=== PATIENT | male | born 1955 | race Hispanic/Latino ===

== ENCOUNTER 2018-05-08 15:51 | Inpatient (IN) | payer BC ==
--- NOTE | 2018-05-08 17:06 | ED PDOC ---
Arrival/HPI - General Chief Complaint: Flu-like Symptoms Time Seen by Provider: 05/08/18 16:10 Historian: Patient - History of Present Illness Narrative History of Present Illness (Text): 05/08/18 17:41 62yo male with with pmhx of inge angio CA referred to ED by Dr. Vargas for complaint of nonproductive cough, rigor, since this morning. Notes that he had a his last Chemo this Sunday. +subjective fever. Denies nausea, vomiting, abdominal pain, chest pain, SOB, diaphoresis, sick contact, travel, any other complaint at this time. Past Medical History - Provider Review Nursing Documentation Reviewed: Yes - Infectious Disease Hx of Infectious Diseases: None - Cardiac Hx Cardiac Disorders: No - Pulmonary Hx Respiratory Disorders: No - Neurological Hx Neurological Disorder: No - HEENT Hx HEENT Disorder: No - Renal Hx Renal Disorder: No - Endocrine/Metabolic Hx Endocrine Disorders: No - Hematological/Oncological Hx Blood Disorders: No Hx Cancer: Yes (Bile duct cancer) Other/Comment: Pt's is on chemo - Integumentary Hx Dermatological Disorder: No - Musculoskeletal/Rheumatological Hx Musculoskeletal Disorders: No - Gastrointestinal Hx Gastrointestinal Disorders: No - Genitourinary/Gynecological Hx Genitourinary Disorders: No - Psychiatric Hx Psychophysiologic Disorder: Yes Hx Anxiety: Yes Hx Substance Use: No - Surgical History Other/Comment: Liver resection Family/Social History - Physician Review Nursing Documentation Reviewed: Yes Family/Social History: Unknown Family HX Smoking Status: Light Smoker < 10 Cigarettes Daily Hx Alcohol Use: No Hx Substance Use: No Allergies/Home Meds Allergies/Adverse Reactions: Allergies No Known Allergies Allergy (Verified 05/08/18 15:58) Home Medications: Home Meds Medication Instructions Recorded Confirmed ALPRAZolam [Xanax] 0.25 mg PO PRN PRN 01/27/16 01/27/16 Review of Systems - Physician Review All systems were reviewed & negative as marked: Yes - Review of Systems Constitutional: Normal Eyes: Normal ENT: Normal Respiratory: Cough Cardiovascular: Normal Gastrointestinal: Normal Genitourinary Male: Normal Musculoskeletal: Normal Skin: Normal Neurological: Normal Endocrine: Normal Hemo/Lymphatic: Normal Psychiatric: Normal Physical Exam Vital Signs Reviewed: Yes Temperature: Afebrile Blood Pressure: Normal Pulse: Tachycardic Respiratory Rate: Normal Appearance: Positive for: Well-Appearing, Non-Toxic, Comfortable Pain Distress: None Mental Status: Positive for: Alert and Oriented X 3 - Systems Exam Head: Present: Atraumatic, Normocephalic Pupils: Present: PERRL Extroacular Muscles: Present: EOMI Conjunctiva: Present: Normal Mouth: Present: Moist Mucous Membranes Neck: Present: Normal Range of Motion Respiratory/Chest: Present: Clear to Auscultation, Good Air Exchange. No: Respiratory Distress, Accessory Muscle Use, Decreased Breath Sounds, Rales, Retracting, Rhonchi Cardiovascular: Present: Regular Rate and Rhythm, Normal S1, S2. No: Murmurs Abdomen: No: Tenderness, Distention, Peritoneal Signs Back: Present: Normal Inspection Upper Extremity: Present: Normal Inspection. No: Cyanosis, Edema Lower Extremity: Present: Normal Inspection. No: Edema Neurological: Present: GCS=15, CN II-XII Intact, Speech Normal Skin: Present: Warm, Dry, Normal Color. No: Rashes Psychiatric: Present: Alert, Oriented x 3, Normal Insight, Normal Concentration Medical Decision Making ED Course and Treatment: 05/08/18 19:06 PT in ED for stated history. He was tachy on arrival. Case was DW Dr. 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 Pt have unoperable CA and currently undergoing chemo with improvement in his bilirubin level noted. States patient gets Chemo every Sunday and the last time was 2days ago. states that patient started having rigor, chills and cough while at Dr. Morelos office for routine visit and he was notified, while patient was sent to the ED. He notes his concern for possible Tumor lysis syndrome. recommends antibiotics and placing pt in OBS with Swetha Stevens and Shad consult. Labs Blood and urine culture CXR EKG 1L NS Vanco and Zosyn Chest xray IMPRESSION: No active disease. No significant interval change compared to the prior examination(s). EKG Accelerate junctional rhythm @ 112bpm NSTEMI Lab was reviewed, leukopenia, elevated alk phos/LFT and lactic noted. Pt however do not meet SIRs criteria for code sepsis. He had rigors while in ED and requested for Klonopin. states is the only medication that usually help him when he gets rigors. It resolved the medication. He was admitted to Dr. Ace. Plan was DW the pt and he agreed. - Lab Interpretations Lab Results: Lab Results 05/08/18 16:30: Influenza Typ A,B (EIA) Negative for flu a/b - RAD Interpretation Radiology Orders: 05/08/18 16:10 CHEST TWO VIEWS (PA/LAT) [RAD] Stat Disposition/Present on Arrival - Present on Arrival Any Indicators Present on Arrival: No History of DVT/PE: No History of Uncontrolled Diabetes: No Urinary Catheter: No History of Decub. Ulcer: No History Surgical Site Infection Following: None - Disposition Have Diagnosis and Disposition been Completed?: Yes Diagnosis: Leukopenia, Elevated liver enzymes, Cholangiocarcinoma, Malaise, Cough Disposition: HOSPITALIZED Disposition Time: 18:00 Patient Plan: Admission Patient Problems: Current Active Problems Problem Status Onset Cholangiocarcinoma Acute Cough Acute Elevated liver enzymes Acute Leukopenia Acute Malaise Acute Condition: FAIR
[2018-05-08 17:27] LABS: VENOUS BLOOD GAS PO2 127 mm/Hg (30-55); VENOUS BLOOD PH 7.45 (7.32-7.43)
[2018-05-08] MEDS ORDERED: Sodium Chloride 0.9% 1,000 ML IV STA (17:34)
[2018-05-08] MEDS ORDERED: Piperacill/Tazo 4.5gm in NS 4.5 GM/100 ML BAG IVPB STA (17:34)
--- NOTE | 2018-05-08 17:34 | RAD ---
Date of service: 05/08/2018 HISTORY: cough COMPARISON: 01/27/2016 TECHNIQUE: Chest PA and lateral FINDINGS: LUNGS: No active pulmonary disease. PLEURA: No significant pleural effusion identified. No pneumothorax apparent. CARDIOVASCULAR: No aortic atherosclerotic calcification present No radiographic findings to suggest acute or significant cardiovascular disease. OSSEOUS STRUCTURES: No significant abnormalities. VISUALIZED UPPER ABDOMEN: Normal. OTHER FINDINGS: None. IMPRESSION: No active disease. No significant interval change compared to the prior examination(s).
[2018-05-08] MEDS ORDERED: Vancomycin 1gm in NS 250ml 1 GM/250 ML BAG IVPB STA (17:36)
[2018-05-08 17:46] LABS: URINE BILIRUBIN SMALL (NEGATIVE); URINE BLOOD LARGE (NEGATIVE); URINE GLUCOSE (UA) NEGATIVE (NEGATIVE); URINE LEUKOCYTE ESTERASE NEGATIVE Leu/uL (NEGATIVE); URINE PROTEIN 100 mg/dL (<30 mg/dL)
[2018-05-08 17:48] LABS: INR 1.24; PARTIAL THROMBOPLASTIN TIME 24.5 Seconds (25.1-36.5); PROTHROMBIN TIME 14.2 SECONDS (9.4-12.5)
[2018-05-08 17:56] LABS: ALB/GLOB RATIO 0.8 (1.1-1.8)
[2018-05-08 17:57] LABS: GRAN # 2.74 (1.4-6.5); GRAN % 96.1 % (50.0-68.0); HEMOGLOBIN 8.6 g/dL (14.0-18.0); LYMPH # 0.1 (1.2-3.4); LYMPH % 3.5 % (22.0-35.0); MEAN CELL VOLUME 92.1 fl (80.0-105.0); MEAN CORPUSCULAR HEMOGLOBIN 30.8 pg (25.0-35.0); MEAN CORPUSCULAR HGB CONC 33.5 g/dl (31.0-37.0); MEAN PLATELET VOLUME 10.3 fl (7.0-11.0); MONO % 0.4 % (1.0-6.0); PLATELET COUNT 402 10^3/uL (120.0-450.0); RBC 2.79 10^6/uL (3.5-6.1); RED CELL DISTRIBUTION WIDTH 15.2 % (11.5-14.5)
[2018-05-08 18:03] LABS: WHITE BLOOD COUNT 2.9 10^3/ul (4.5-11.0)
[2018-05-08 18:04] LABS: URINE APPEARANCE SL CLOUDY (CLEAR)
[2018-05-08 18:27] LABS: ALBUMIN 3.1 g/dL (3.0-4.8); CALCIUM 8.8 mg/dL (8.4-10.5)
[2018-05-08 18:38] LABS: URINE COLOR YELLOW (YELLOW)
[2018-05-08 18:46] LABS: URINE BACTERIA MANY (NEG)
[2018-05-08 18:55] LABS: BAND 9 % (0-2); EOSINOPHIL 1 % (0.0-3.0); LYMPHOCYTE 4 % (22.0-35.0); MONOCYTE 2 % (1.0-6.0); NEUTROPHIL 84 % (50.0-70.0)
[2018-05-08 18:56] LABS: ANISOCYTOSIS 1+; HYPOCHROMIA 1+; PLATELET ESTIMATE NORMAL (NORMAL); POIKILOCYTOSIS SLIGHT; STOMATOCYTE SLIGHT
[2018-05-08] MEDS ORDERED: Potassium Chl 10 mEq in D5-1/2 1,000 ML IV SCH (21:15)
[2018-05-08 21:33] LABS: VENOUS BLOOD GAS BASE EXCESS -13.2 mmol/L (0.0-2.0); VENOUS BLOOD GAS PO2 122 mm/Hg (30-55); VENOUS BLOOD PH 7.29 (7.32-7.43)
[2018-05-08] MEDS ORDERED: POLYETHYLENE GLYCOL 3350 17 GM/Dose PACKET PO PRN (22:05)
[2018-05-08] MEDS ORDERED: FMT LOWER DELIVERY MICROBIOTA PREPARATION 250 ML RC ONE (22:55)
[2018-05-08 23:22] VITALS: BMI 21.2
[2018-05-08] MEDS ORDERED: Albuterol-Ipratrop 3 mg / 0.5 (3 ml) UD IH ONE (23:42)
[2018-05-09 00:03] VITALS: BP 163/76; PULSE 122; RESP 22; TEMP 98; O2SAT 95
[2018-05-09 01:18] LABS: VENOUS BLOOD GAS BASE EXCESS -28.9 mmol/L (0.0-2.0); VENOUS BLOOD GAS PO2 56 mm/Hg (30-55); VENOUS BLOOD PH 6.87 (7.32-7.43)
[2018-05-09] MEDS ORDERED: Sodium Chloride 0.9% 1,000 ML IV STA (01:22)
[2018-05-09] MEDS ORDERED: Levalbuterol 0.63 MG/3 ML Inhal Soln UD IH STA (01:33)
[2018-05-09] MEDS ORDERED: Iodixanol 320 MG/ML 100 ML BOTTLE IV ONE (01:35)
[2018-05-09] MEDS ORDERED: Levalbuterol 0.63 MG/3 ML Inhal Soln UD ONE (01:36)
[2018-05-09] MEDS ORDERED: Midazolam 2 MG/2 ML VIAL IVP ONE (01:49)
[2018-05-09] MEDS ORDERED: Midazolam 2 MG/2 ML VIAL ONE (01:54)
[2018-05-09] MEDS ORDERED: Dextrose 50% SYRINGE Inj (50 ml) IVP ONE ×2 (01:54→01:58)
[2018-05-09] MEDS ORDERED: Dextrose 5%/0.45% NS 1,000 ML IV SCH (02:15)
[2018-05-09 02:42] LABS: HEMOGLOBIN 9.3 g/dL (14.0-18.0); MEAN CORPUSCULAR HEMOGLOBIN 30.9 pg (25.0-35.0); MEAN CORPUSCULAR HGB CONC 30.8 g/dl (31.0-37.0); MEAN PLATELET VOLUME 10.8 fl (7.0-11.0); RBC 3.01 10^6/uL (3.5-6.1); RED CELL DISTRIBUTION WIDTH 16.5 % (11.5-14.5); WHITE BLOOD COUNT 8.4 10^3/ul (4.5-11.0)
[2018-05-09 02:52] LABS: MEAN CELL VOLUME 100.3 fl (80.0-105.0)
[2018-05-09 03:04] LABS: ALB/GLOB RATIO 0.8 (1.1-1.8); ALBUMIN 3.1 g/dL (3.0-4.8); ALT/SGPT 814 U/L (7-56); AST/SGOT 1359 U/L (17-59); BLOOD UREA NITROGEN 35 mg/dL (7-21); CALCIUM 9.2 mg/dL (8.4-10.5); GFR NON-AFRICAN AMERICAN 24
--- NOTE | 2018-05-09 03:09 | PCM.PROC ---
Procedures Attestation:: I certify that I have explained the specified Operation(s) or Procedure(s), risks, benefits and reasonable alternatives to the Patient and/or other person responsible. The opportunity was given to ask questions and all questions answered - Intubation Time Out Performed: Yes Sedative: Versed (1cc) Laryngoscope: Martin ET Tube Size: 7.5 ET Tube Uncuffed: Yes ET Tube Secured at Depth: 24 ET Tube Secured Locarion: Lips ET Tube Placement Confirmation: Visualized Passing Through Cords, Breath Sounds Equal Bilaterally, No Breath Sounds Over Epigastrum, Confirmation w/Capnometry Patient Tolerated Procedure: No Complications Procedure Immediate Complications: None
--- NOTE | 2018-05-09 03:11 | PCM.PROC ---
Procedures Attestation:: I certify that I have explained the specified Operation(s) or Procedure(s), risks, benefits and reasonable alternatives to the Patient and/or other person responsible. The opportunity was given to ask questions and all questions answered - Central Line Placement Right Femoral Triple Lumen Catheter Aseptic technique was employed throughout the procedure: Hand Hygiene done prior to procedure, Full sterile barriers (mask, hair cover, sterile gown, sterile gloves), Full body sterile drape, Chloraprep Antiseptic: 2 minute prep for Femoral CVP Time Out Performed: No Pt. Placed on Pulse Ox Monitor: Yes Central Line Prep: Chlorhexidine-Alcohol Combination Amount of Anesthesia Used (mls): 0 Ultrasound Used for Placement: Yes Central Line Lumen Inserted: triple Central Line Length: 20 cm Post Procedure: Sutured in Place, Good Blood Return, All Ports Aspirated, Flu shed, Capped, Sterile Dressing Applied Secured by: Suture Post procedure dressing: Clear vapor permeable, Chlorhexidine disc (Biopatch) Post Procedure X-Ray: No Patient Tolerated Procedure: No Complications Immediate Complications: None Additional Comments: Consent implied due to emergency situation. Central line placed under emergent conditions. Patient code tata called at 2:11 am with initial ROSC however patient had loss of pulses short after and ACLS protocol was resumed. Peripheral access was poor and patient required pressor initiation for blood pressure support.
--- NOTE | 2018-05-09 04:10 | PCM.RRT ---
ROLL TENSION TESTER Nurse Assessment - Situation Date: 05/09/18 Time ROLL TENSION TESTER was called: :35 ROLL TENSION TESTER Responder Arrival Time: :35 ROLL TENSION TESTER Location:: [address] [place] [address] Room Number: 372-2 ROLL TENSION TESTER Reason for Call: Respiratory Distress, O2 Saturation below 90% ROLL TENSION TESTER Called By: RN, Physician - IV IV Inserted during ROLL TENSION TESTER?: No - Respiratory Oxygen Delivery Method: Face Mask @%, Intubated Was the Patient Ventilated with Bag/Mask 100% O2?: Yes Secretions Suctioned?: Yes Was the Patient Intubated?: Yes - Medication Medications Administered During ROLL TENSION TESTER: Solumedrol 125mg IVP. Versed 2 mg IVP. D50 ample x2. D51/2NS at 125 mls/hr - Diagnostic Test Ordered EKG: Yes Chest X-Ray: Yes CT Scan: Yes - Stat Labs Ordered ROLL TENSION TESTER Stat Labs Ordered: CBC, BMP, ABG CPR started during ROLL TENSION TESTER?: Yes - Vital Signs Vital Sign: Rapid Response Vital Sign Blood Pressure 117/63 Pulse Rate 108 Respiratory Rate 20 Temperature 97.2 F Oxygen Saturation 100 - Finger Stick Blood Glucose Finger Stick Blood Glucose: 20 - Time ROLL TENSION TESTER Ended Time ROLL TENSION TESTER Ended: 02:11 - Recommendations Notifications: Attending Physician, Family or Designated Caregiver I.Reason for ROLL TENSION TESTER - A) Acute Change in Patient: (Select all that apply): Acute change in SpO2 less Subjective: ROLL TENSION TESTER called on patient by housestaff for evaluation and treatment of decreasing oxygen saturation while on 2L via NC. Patient seen and examined at bedside with rapid response team. BP initially noted to be 138/50 with pulse of 120s. Patient blood glucose noted to be in the 20s. Patient given 2 amps D50 stat. Repeat blood glucose improved to 80s. Patient became more awake and alert. Despite intervention patient blood pressure and heart rate declined. Patients breathing status worsened. Patient was intubated for airway protection. Patient subs equently experienced loss of pulses. Rafal payton called. Roles assigned. Bed board placed under patient. CPR initiated immediately. Asystole noted on monitor. IV epi given every 3-5 minutes with rate/rhythm checks every 2 minutes. Calcium chloride x 1 and sodium bicarbonate x 1 administered. ROSC was achieved after 5 rounds of ALCS were performed. A femoral TLC was placed by surgery resident in the right groin and levophed and dopamine were started. During this time pulses were lost for the second time. Rafal payton called. CPR initiated immediately. Asystole noted on monitor. IV epi given every 3-5 minutes with rate/rhythm checks every 2 minutes. 6 rounds of ACLS protocol performed. Patient remained pulseless despite aforementioned interventions. Patient was pronounced at 3:01am. - Neurological Status (Select all that apply): Disoriented - Respiratory Oxygen Delivery Method: Face Mask @%, Intubated
--- NOTE | 2018-05-09 04:14 | CP.PCM.PRO ---
Pronouncement of Note - Clinical Findings Physical Exam: No Response Verbal/Painful Stimuli, Absent Peripheral Puls es{Carotid & Femoral}, Absent Heart & Breath Sounds, Pupils Fixed & Dilated, Absence of Vital Signs - Pronouncement Time Time of Pronouncement of : 03:01 - Notifications Pronouncement Notifications: Family Notified, Atending Notified Blind Escort Notified: Yes [place] [id number]
--- NOTE | 2018-05-09 05:13 | HP ---
DATE OF EXAM: 05/08/[address] Vargas. CHIEF COMPLAINT: Rigors, chills. HISTORY OF PRESENT ILLNESS: The patient is a 62-year-old male admitted by the emergency room for rigors and chills since meeting/event planner with occasional nonproductive cough. 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 At present, he is resting comfortably after IV antibiotics were begun, with patient reporting that he had been seen by Dr. Fontenot, his straw hat presser, in the past, who does not come to this hospital with recommendations for dilatation of his esophagus?. With this, we will ask Dr. Kulkarni, straw hat presser, to evaluate the patient for this complaint as the patient reports that he feels that whenever he swallows something it gets stuck in his mid upper abdomen. Also constipation past 2 days. PAST MEDICAL HISTORY: Significant for stage IV cholangiocarcinoma with obstructive jaundice, status post common bile duct stenting, anxiety, history of aborted liver resections at [facility] in [place], GERD, and unintentional weight loss. FAMILY HISTORY AND SOCIAL HISTORY: The patient is a current smoker, trying to quit. 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 Otherwise, noncontributory. His mother of bowel perforation. Father of brain cancer. One brother of bile duct cancer and one sister who is alive but in poor health, he reports. ALLERGIES: NO KNOWN ALLERGIES. MEDICATIONS: Include Zofran, Klonopin, Zoloft, tramadol, and now recently Zofran discontinued and Kytril/Sancuso patch for nausea apply to the left arm. REVIEW OF SYSTEMS: A 12-point review of systems was done, which was negative to question except for items mentioned in the history of present illness. PHYSICAL EXAMINATION: VITAL SIGNS: Temperature 98.8, pulse 127, respirations 18, blood pressure 106/58 with a pulse ox of 95%. HEENT: Unremarkable. NECK: Supple. HEART: Tachy rate, regular rhythm. LUNGS: Clear. ABDOMEN: Soft. Minimal tenderness to gentle palpation in the midepigastrium. EXTREMITIES: No edema. SKIN: Warm and dry. NEUROLOGIC: Awake, alert, and oriented x3. LABORATORY DATA: The patient's labs were done. White blood cell count of 2.9 with an absolute neutrophil count of 2.47, hemoglobin of 8.6, hematocrit of 25.7, platelet count of 402,000. His chem metabolic panel showed a chloride of 110, BUN of 34, creatinine of 1.5, T bili of 1.7, AST of 227, ALT of 147 with an alk phos of 669. His CA 19-9 was done on 04/24/2018 showing a value of 169 with a CEA value on the same day of 4.7. His INR today is 1.24. Urinalysis showed large amount of blood, small amount of bilirubin with his influenza negative for A, B flu. The patient did have a chest x-ray done earlier today, it was read as no active disease, no significant interval change. Ultrasound of the abdomen was done earlier today, it was read as multiple solid hepatic masses, multiple simple hepatic cysts, biliary stent, CBD dilated to 11 mm, gallbladder filled with sludge, but no evidence of cholelithiasis. The patient had EKG done today, it was not read yet. We will wait the results. ASSESSMENT: For this patient is that of sepsis, systemic inflammatory response syndrome, stage IV cholangiocarcinoma, status post stenting, currently on chemotherapy, nausea, esophageal constriction?, anxiety and. constipation. PLAN: For this patient is to admit to the medical floor. We will give IV fluids with clear liquids as tolerated. We will continue his Sancuso/Kytril patch for nausea as it works better than Zofran. We will check a procalcitonin level as per consult with Dr. Stevens, Infectious Disease, and Dr. Kulkarni, Gastrointestinal. We will also continue IV antibiotics as per Dr. Stevens, , with labs rechecked again in the morning. Also with the patient's anemic indices and neutropenia, we will monitor to see whether isolation might be indicated for his neutropenic lab findings. Miralax tonight and daily prn constipation also recommended. Prognosis for this patient is guarded. This is a complex patient with a comprehensive medically necessary and appropriate visit carried out in excess of 70 minutes with patient's questions answered to his satisfaction. Zain Armando MD [facility]
--- NOTE | 2018-05-09 10:43 | CARD ---
APPROVED REPORT Date of service: 05/08/2018 EKG Measurement Heart [id number] <Conclusion> Sinus Tachycardia Short PA No change
== END 2018-05-09 03:01 | DRG 871 ==
LOC: ED 15:51 → ERH 18:34 → OBSVTOIN 19:30 → ERH 20:30 → 3RSO 21:29
PROVIDERS: ADMIT Family Medicine; ATTEND Family Medicine
PROC: 0BH18EZ Insertion of Endotracheal Airway into Trachea, Via Natural or Artificial Opening Endoscopic (ICD-10-PCS; principal; 2018-05-09)
PROC: 06HY33Z Insertion of Infusion Device into Lower Vein, Percutaneous Approach (ICD-10-PCS; 2018-05-09)
PROC: B54BZZA Ultrasonography of Right Lower Extremity Veins, Guidance (ICD-10-PCS; 2018-05-09)
PROC: 5A12012 Performance of Cardiac Output, Single, Manual (ICD-10-PCS; 2018-05-09)
DX: A41.9 Sepsis, unspecified organism (principal); I21.4 Non-ST elevation (NSTEMI) myocardial infarction; C22.1 Intrahepatic bile duct carcinoma; F41.9 Anxiety disorder, unspecified; K59.00 Constipation, unspecified; K21.9 Gastro-esophageal reflux disease without esophagitis; R53.81 Other malaise; R05 Cough; D64.9 Anemia, unspecified; D70.9 Neutropenia, unspecified